=== PATIENT | male | born 2000 | race Caucasian/White ===

== ENCOUNTER 2023-03-20 10:16 | Emergency (ER) | payer OTHER, SELFPAY ==
[2023-03-20 10:20] VITALS: BP 155/96; PULSE 81; RESP 16; TEMP 36.7; O2SAT 99; BMI 18.2
--- NOTE | 2023-03-21 07:11 | ED.GENADUL1 ---
HPI - General Adult General Chief complaint: Recheck/Abnormal Lab/Rx Stated complaint: IV placement Time Seen by Provider: 03/20/23 10:27 Source: patient and family Mode of arrival: walk-in Limitations: no limitations History of Present Illness HPI narrative: Patient is having a dental procedure and requires medicine to be administered IV days before the procedure. Mother unable to get IV access at home because she did not have a complete IV kit. He presents requesting IV placement. He has no complaints Related Data Allergies Allergy/AdvReac Type Severity Reaction Status Date / Time ceftriaxone [From Rocephin] Allergy Unknown Verified 03/20/23 10:22 Penicillins Allergy Verified 03/20/23 10:22 Sulfa (Sulfonamide Allergy Verified 03/20/23 10:22 Antibiotics) PFSH PFS Social History Smoking status: Never smoker Exam Narrative Exam Narrative: Nurses notes and vital signs reviewed and patient is not hypoxic. afebrile General: Well-appearing and in no apparent distress. Skin: Warm, dry, no pallor noted. Eye: Pupils are equal, round and EOMI. No scleral icterus. Cardiovascular: Regular Rate and Rhythm without murmur, gallop or rub. Respiratory: No accessory muscle use or respiratory distress. Lungs clear. Musculoskeletal: normal ROM Neurological: A&O x4. No cranial nerve dysfunction observed. No truncal ataxia. Moves all extremities. Sensation intact. Psychiatric: Cooperative and interactive. Normal mood and affect. Constitutional Vital Signs, click to edit/add: Last Vital Signs Temp 98.0 F 03/20/23 10:20 Pulse 81 03/20/23 10:20 Resp 16 03/20/23 10:20 BP 155/96 H 03/20/23 10:20 Pulse Ox 99 03/20/23 10:20 O2 Del Method Room Air 03/20/23 10:20 Course Vital Signs Vital signs: Vital Signs Temperature 98.0 F 03/20/23 10:20 Pulse Rate 81 03/20/23 10:20 Respiratory Rate 16 03/20/23 10:20 Blood Pressure 155/96 H 03/20/23 10:20 Pulse Oximetry 99 03/20/23 10:20 Oxygen Delivery Method Room Air 03/20/23 10:20 Temperature 98.0 F 03/20/23 10:20 Pulse Rate 81 03/20/23 10:20 Respiratory Rate 16 03/20/23 10:20 Blood Pressure 155/96 H 03/20/23 10:20 Pulse Oximetry 99 03/20/23 10:20 Oxygen Delivery Method Room Air 03/20/23 10:20 Medical Decision Making MDM Narrative Medical decision making narrative: ED nurse placed a peripheral IV. Patient tolerated well. Mother administered his med while in the ED. No adverse reaction and he was discharged home. Discharge Plan Discharge Chief Complaint: Recheck/Abnormal Lab/Rx Clinical Impression: Encounter for intravenous line placement Patient Disposition: Home, Self-Care Time of Disposition Decision: 10:27 Instructions: How to Care for Your Midline Catheter (ED) Stand Alone Forms: Portal Instructions Discharge Date/Time: 03/20/23 10:43
== END 2023-03-20 10:43 | disposition home or self-care (01) ==
PROVIDERS: Emergency Provider Emergency Medicine; PCP Family Medicine
DX: Z45.2 Encounter for adjustment and management of vascular access device (principal)
CPT/HCPCS: 99283

== ENCOUNTER 2023-05-01 17:47 | Emergency (ER) | payer OTHER, SELFPAY ==
[2023-05-01 17:59] VITALS: BP 140/67; PULSE 80; RESP 18; TEMP 36.6; O2SAT 99; BMI 18.3
--- NOTE | 2023-05-01 18:04 | ED.GENADUL1 ---
HPI - General Adult General Chief complaint: Recheck/Abnormal Lab/Rx Stated complaint: START IV Time Seen by Provider: 05/01/23 18:01 Source: patient Mode of arrival: walk-in Limitations: no limitations History of Present Illness HPI narrative: Patient is a 22-year-old male with history of von Willebrand's disease who presents to the ER for IV placement. Patient receives IV medication for his von Willebrand's when he develops areas of bleeding. He states he started bleeding from the gums without trauma this afternoon. He has no other focal medical complaints or pain. His mother attempted IV placement x 2 without success so he presents to the ER for IV placement so that he can be given his home medication. Related Data Allergies Allergy/AdvReac Type Severity Reaction Status Date / Time ceftriaxone [From Rocephin] Allergy Unknown Verified 03/20/23 10:22 Penicillins Allergy Verified 03/20/23 10:22 Sulfa (Sulfonamide Allergy Verified 03/20/23 10:22 Antibiotics) Review of Systems ROS Constitutional Denies: fever or chills Ears, nose, mouth, and throat Denies: throat pain or nasal congestion Respiratory Denies: shortness of breath or cough Gastrointestinal Denies: nausea or vomiting Musculoskeletal Denies: back pain Integumentary/Breast Denies: rash Neurological Denies: headache Hematologic/Lymphatic Reports: easy bruising and easy bleeding PFSH PFSH Social History Smoking status: Never smoker Exam Narrative Exam Narrative: Gen.: Awake, alert, in no distress Head: Normocephalic, atraumatic ENT: Moist mucous membranes, minimal blood noted around the gumline of the left mandible Respiratory: No respiratory distress Extremities: Moves extremities equally Psych: Normal mood and affect Neuro: No focal neuro deficit Skin: Warm, dry, intact Constitutional Vital Signs, click to edit/add: Last Vital Signs Temp 97.9 F 05/01/23 17:59 Pulse 80 05/01/23 17:59 Resp 18 05/01/23 17:59 BP 140/67 05/01/23 17:59 Pulse Ox 99 05/01/23 17:59 O2 Del Method Room Air 05/01/23 17:59 Course Vital Signs Vital signs: Vital Signs Temperature 97.9 F 05/01/23 17:59 Pulse Rate 80 05/01/23 17:59 Respiratory Rate 18 05/01/23 17:59 Blood Pressure 140/67 05/01/23 17:59 Pulse Oximetry 99 05/01/23 17:59 Oxygen Delivery Method Room Air 05/01/23 17:59 Temperature 97.9 F 05/01/23 17:59 Pulse Rate 80 05/01/23 17:59 Respiratory Rate 18 05/01/23 17:59 Blood Pressure 140/67 05/01/23 17:59 Pulse Oximetry 99 05/01/23 17:59 Oxygen Delivery Method Room Air 05/01/23 17:59 Medical Decision Making MDM Narrative Medical decision making narrative: IV placed by nursing without difficulty and mother administered home medication. Patient with no significant active bleeding at this time, stable vital signs. Follow-up and return to the ER if symptoms change or worsen Medical Records Medical records reviewed: Yes I reviewed the patient's medical records Discharge Plan Discharge Chief Complaint: Recheck/Abnormal Lab/Rx Clinical Impression: Encounter for intravenous line placement Patient Disposition: Home, Self-Care Time of Disposition Decision: 18:04 Condition: Good Instructions: Bleeding Disorders (ED) Stand Alone Forms: Portal Instructions Referrals: Melissa Matute MD [Primary Care Provider] - 1 week Discharge Date/Time: 05/01/23 18:16
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
== END 2023-05-01 18:16 | disposition home or self-care (01) ==
PROVIDERS: Emergency Provider Emergency Medicine; PCP Family Medicine
DX: Z45.2 Encounter for adjustment and management of vascular access device (principal); D68.00 Von Willebrand disease, unspecified
CPT/HCPCS: 99283

== ENCOUNTER 2023-12-18 21:38 | Emergency (ER) | payer OTHER, SELFPAY ==
[2023-12-18 21:44] VITALS: BP 147/79; PULSE 73; TEMP 36.3; O2SAT 100
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
--- NOTE | 2023-12-18 21:52 | ED_ITS ---
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 He had a dental cleaning done yesterday and has been having some mild bleeding from his gums. He denies any pain. He has not had a fever. He has a small amount of oozing from his teeth and gum area without any excessive bleeding noted. He denies that he is nauseated from swallowing any blood. The mother has tried to place an IV in him approximately 8 times to avoid having come to the emergency department for an IV but she was unsuccessful. She request an IV to be placed so that he can receive his factor VIII. She has the factor VIII with her. No additional injuries or complaints. Related Data Allergies Allergy/AdvReac Type Severity Reaction Status Date / Time ceftriaxone [From Rocephin] Allergy Unknown Hives Verified 12/18/23 21:47 Penicillins Allergy Hives Verified 12/18/23 21:47 Sulfa (Sulfonamide Allergy Hives Verified 12/18/23 21:47 Antibiotics) Opioid HPI Opioid Management Most Recent Opioid Data: No Data to Display PFSH PFS Social History Smoking status: Never smoker Exam Constitutional Vital Signs, click to edit/add: Last Vital Signs Temp 97.4 F L 12/18/23 21:44 Pulse 73 12/18/23 21:44 Resp 18 12/18/23 21:44 BP 147/79 H 12/18/23 21:44 Pulse Ox 100 12/18/23 21:44 O2 Del Method Room Air 12/18/23 21:44 Course Vital Signs Vital signs: Vital Signs Temperature 97.4 F L 12/18/23 21:44 Pulse Rate 73 12/18/23 21:44 Respiratory Rate 18 12/18/23 21:44 Blood Pressure 147/79 H 12/18/23 21:44 Pulse Oximetry 100 12/18/23 21:44 Oxygen Delivery Method Room Air 12/18/23 21:44 Temperature 97.4 F L 12/18/23 21:44 Pulse Rate 73 12/18/23 21:44 Respiratory Rate 18 12/18/23 21:44 Blood Pressure 147/79 H 12/18/23 21:44 Pulse Oximetry 100 12/18/23 21:44 Oxygen Delivery Method Room Air 12/18/23 21:44 Medical Decision Making MDM Narrative Medical decision making narrative: A 20-gauge Angiocath was placed by the nursing staff for administration of factor VIII by the patient's mother. He has some venous oozing from his gums after dental work yesterday. He is otherwise stable. The medication was administered in the emergency department and he will be discharged home with the IV in place to use if he needs an additional treatment of factor VIII. The mother is well versed in IV insertion and removal. He is otherwise stable for discharge. Discharge Plan Discharge Stand Alone Forms: Portal Instructions Chief Complaint: Dental/Oral Clinical Impression: Encounter for intravenous line placement, Von Willebrand disease Patient Disposition: Home, Self-Care Time of Disposition Decision: 21:54 Condition: Good Print Language: [place] Additional Instructions: Gently remove IV when bleeding has ceases and apply pressure as needed until bleeding stops. Referrals: Melissa Matute MD [Primary Care Provider] - 1 week
== END 2023-12-18 22:14 | disposition home or self-care (01) ==
PROVIDERS: Emergency Provider Emergency Medicine; PCP Family Medicine
DX: D68.00 Von Willebrand disease, unspecified (principal)
CPT/HCPCS: 99281

== ENCOUNTER 2024-05-14 12:46 | Emergency (ER) | payer OTHER, SELFPAY ==
[2024-05-14 12:53] VITALS: BP 125/73; PULSE 79; TEMP 36.7; O2SAT 100; BMI 19.8
--- NOTE | 2024-05-14 13:19 | ED.GENADUL1 ---
HPI HPI - General Adult General Chief complaint: Recheck/Abnormal Lab/Rx Stated complaint: general weakness Time Seen by Provider: 05/14/24 12:59 Source: patient Mode of arrival: walk-in Limitations: no limitations History of Present Illness HPI narrative: Patient is a 23-year-old male well-known to this emergency department with a history of von Willebrand's disease. He has a history of requiring IV medication to stop the bleeding in the past when he has had injuries or areas of bleeding. Typically his mother is able to start the IV for him but if she is not able to get the IV, they come to the emergency department for IV placement so mother can administer medications which she brings from home. Patient states for the last several days he has had bleeding from tooth #32. He denies any injury or pain to the area. He states he noticed that it was bleeding several days ago and it has been steady, no other upper respiratory symptoms or issues. Related Data Allergies Allergy/AdvReac Type Severity Reaction Status Date / Time ceftriaxone (From Rocephin) Allergy Unknown Hives Verified 05/14/24 12:52 Penicillins Allergy Hives Verified 05/14/24 12:52 Sulfa (Sulfonamide Allergy Hives Verified 05/14/24 12:52 Antibiotics) Opioid HPI Opioid Management Most Recent Opioid Data: No Data to Display Review of Systems ROS Constitutional Denies: fever or chills Ears, nose, mouth, and throat Denies: throat pain or mouth pain Cardiovascular Denies: chest pain Respiratory Denies: shortness of breath Gastrointestinal Denies: nausea or vomiting Integumentary/Breast Denies: rash Neurological Denies: numbness in extremities or weakness in extremities Hematologic/Lymphatic Reports: easy bruising and easy bleeding PFSH PFSH Social History Smoking status: Never smoker Little interest or pleasure in doing things: not at all Feeling down, depressed, or hopeless: not at all Exam Narrative Exam Narrative: Gen.: Awake, alert, in no distress Head: Normocephalic, atraumatic ENT: Moist mucous membranes; tooth #32 with minimal dried blood around the base of the tooth at the gumline. No dental abscess or injury noted. Clear speech. No redness or swelling under the tongue Respiratory: No respiratory distress Extremities: Moves extremities equally, no injuries noted Psych: Normal mood and affect Neuro: No focal neuro deficit Skin: Warm, dry, intact Constitutional Vital Signs, click to edit/add: Last Vital Signs Temp 98.1 F 05/14/24 12:53 Pulse 79 05/14/24 12:53 Resp 18 05/14/24 12:53 BP 125/73 05/14/24 12:53 Pulse Ox 100 05/14/24 12:53 O2 Del Method Room Air 05/14/24 12:53 Course Vital Signs Vital signs: Vital Signs Temperature 98.1 F 05/14/24 12:53 Pulse Rate 79 05/14/24 12:53 Respiratory Rate 18 05/14/24 12:53 Blood Pressure 125/73 05/14/24 12:53 Pulse Oximetry 100 05/14/24 12:53 Oxygen Delivery Method Room Air 05/14/24 12:53 Temperature 98.1 F 05/14/24 12:53 Pulse Rate 79 05/14/24 12:53 Respiratory Rate 18 05/14/24 12:53 Blood Pressure 125/73 05/14/24 12:53 Pulse Oximetry 100 05/14/24 12:53 Oxygen Delivery Method Room Air 05/14/24 12:53 Medical Decision Making MDM Narrative Medical decision making narrative: IV placed easily by nursing staff, mother administered home medications as she has been previously instructed to do by their specialist. No issues, no other focal medical complaints. Follow-up with PCP and return to the ER if symptoms change or worsen SUPERVISED APC VISIT, PHYSICIAN ATTESTATION: Based on the medical record the care appears appropriate. ? Medical Records Medical records reviewed: Yes I reviewed the patient's medical records Discharge Plan Discharge Chief Complaint: Recheck/Abnormal Lab/Rx Clinical Impression: Encounter for intravenous line placement Patient Disposition: Home, Self-Care Time of Disposition Decision: 13:20 Condition: Good Print Language: [place] Referrals: Melissa Matute MD [Primary Care Provider] - 1 week
== END 2024-05-14 13:26 | disposition home or self-care (01) ==
PROVIDERS: Emergency Provider Student in an Organized Health Care Education/Training Program; PCP Family Medicine
DX: Z45.2 Encounter for adjustment and management of vascular access device (principal); D68.00 Von Willebrand disease, unspecified; K08.89 Other specified disorders of teeth and supporting structures
CPT/HCPCS: 99283

== ENCOUNTER 2024-06-20 22:24 | Emergency (ER) | payer OTHER, SELFPAY ==
[2024-06-20 22:30] VITALS: BP 136/74; PULSE 118; TEMP 39.2; O2SAT 98; BMI 20.4
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
[2024-06-20 22:56] LABS: Influenza Virus A Antigen Negative; Influenza Virus B Antigen Negative; Internal Control Within Normal Limits; SARS-CoV-2 Ag NEGATIVE (NEGATIVE)
[2024-06-20] MEDS: ACETAMINOPHEN 325 MG TABLET 650 MG PO (23:14)
[2024-06-20] MEDS: AZITHROMYCIN 250 MG TABLET 500 MG PO (23:14)
--- NOTE | 2024-06-20 23:17 | ED_ITS ---
HPI HPI - General Adult General Chief complaint: Fever Stated complaint: FEVER, COUGH Time Seen by Provider: 06/20/24 22:36 Source: patient Mode of arrival: walk-in Limitations: no limitations History of Present Illness HPI narrative: 23-year-old male to the emergency department chief complaint of several days of cough and fever. He denies any other symptoms. He denies any shortness of breath. Cough is not productive. normal intake and activity level. He does have a history of von Willebrand's. Related Data Previous Rx's ?Medication ?Instructions ?Recorded azithromycin 250 mg tablet 250 mg PO DAILY 4 days #4 tabs 06/20/24 benzonatate 100 mg capsule 100 mg PO Q6H PRN cough #20 caps 06/20/24 Allergies Allergy/AdvReac Type Severity Reaction Status Date / Time ceftriaxone (From Rocephin) Allergy Unknown Hives Verified 05/14/24 12:52 Penicillins Allergy Hives Verified 05/14/24 12:52 Sulfa (Sulfonamide Allergy Hives Verified 05/14/24 12:52 Antibiotics) Opioid HPI Opioid Management Most Recent Opioid Data: No Data to Display Review of Systems ROS Status of ROS 10 or more systems reviewed and unremark able except as noted in history and below PFSH PFSH Social History Smoking status: Never smoker Little interest or pleasure in doing things: not at all Feeling down, depressed, or hopeless: not at all Exam Narrative Exam Narrative: VITALS: I have reviewed the triage vital signs. GENERAL: Well developed, well appearing adult in no acute distress. NEURO: Alert and oriented. Moves all extremities. Face is symmetric and expressive. EYES: PERRL. No scleral icterus or conjunctival injection. No discharge. HENT: Normocephalic, atraumatic. Hearing is grossly intact. Nares grossly patent and without discharge. Mucous membranes moist. NECK: No JVD. Patient moves neck without restriction. CARDIO: Rhythm regular. Normal rate. No murmur, rub, or gallop. Pulses equal bilaterally in the upper and lower extremity. No lower extremity edema. PULM: Lungs clear to auscultation in all alvarado. No wheezes, rales, or rhonchi. No conversational dyspnea. No splinting, stridor, or accessory muscle use. GI/: Abdomen is soft and non-tender. Normoactive bowel sounds. EXTREMITIES: Symmetric muscle bulk. No joint swelling. No clubbing, cyanosis, or deformity. SKIN: Warm and dry. Normal turgor. No rash or lesions appreciated. PSYCH: Mood, affect, and interaction is appropriate to the setting. Constitutional Vital Signs, click to edit/add: Last Vital Signs Temp 102.6 F H 06/20/24 22:30 Pulse 118 H 06/20/24 22:30 Resp 18 06/20/24 22:30 BP 136/74 06/20/24 22:30 Pulse Ox 98 06/20/24 22:30 O2 Del Method Room Air 06/20/24 22:30 Course Vital Signs Vital signs: Vital Signs Temperature 102.6 F H 06/20/24 22:30 Pulse Rate 118 H 06/20/24 22:30 Respiratory Rate 18 06/20/24 22:30 Blood Pressure 136/74 06/20/24 22:30 Pulse Oximetry 98 06/20/24 22:30 Oxygen Delivery Method Room Air 06/20/24 22:30 Temperature 102.6 F H 06/20/24 22:30 Pulse Rate 118 H 06/20/24 22:30 Respiratory Rate 18 06/20/24 22:30 Blood Pressure 136/74 06/20/24 22:30 Pulse Oximetry 98 06/20/24 22:30 Oxygen Delivery Method Room Air 06/20/24 22:30 Medical Decision Making MDM Narrative Medical decision making narrative: Well-appearing 23-year-old male to the emergency department with chief complaint of fever and cough. Febrile, otherwise stable vitals. He is in no respiratory distress. He is well-appearing. COVID and influenza testing was negative. There is a large amount of atypical pneumonia in the community at this time. Will treat with azithromycin. Father asks for a cough medication. Tessalon Perles are prescribed. Return precautions were discussed. All questions were answered. The patient was discharged home Medical Records Medical records reviewed: Yes I reviewed the patient's medical records Lab Data Lab results reviewed: Yes I reviewed the patient's lab results Labs: Lab Results 06/20/24 Range/Units 22:35 Influenza Type A Ag Negative Influenza Type B Ag Negative SARS-CoV-2 Ag (CV2AG) Negative (NEGATIVE) Discharge Plan Discharge Chief Complaint: Fever Clinical Impression: Atypical pneumonia Patient Disposition: Home, Self-Care Time of Disposition Decision: 23:06 Condition: Good Mode of Transportation: Private Vehicle Prescriptions / Home Meds: New azithromycin 250 mg tablet 250 mg PO DAILY 4 Days Qty: 4 0RF Rx Instructions: start on day 2 of therapy benzonatate 100 mg capsule 100 mg PO Q6H PRN (Reason: cough) Qty: 20 0RF Print Language: Luxembourgish Instructions: Community Acquired Pneumonia (ED) Additional Instructions: Call the office of your primary care doctor to arrange for follow-up within the above-stated timeframe. Your ED visit was focused on your acute issue and does not replace primary care. You should review your labs, imaging, and diagnoses from this ED visit with your primary care physician. There may be non-emergent/ incidental findings that need further evaluation. You should review your vital signs including blood pressure with your PCP. If you were prescribed medications you should discuss possible side-effects and drug interactions with your pharmacist. Call 911 or go to the nearest Emergency Department if you develop any new or worsening symptoms. Seek immediate medical attention if you develop: worsening shortness of breath, difficulty breathing, chest pain, nausea, vomiting, weakness, numbness, tingling, excessive sweating, loss of motion in your arms or legs, or any new or worsening symptoms. Referrals: Melissa Matute MD [Primary Care Provider] - 1 week
[2024-06-20] MEDS: BENZONATATE 100 MG CAPSULE PO (23:43)
== END 2024-06-20 23:44 | disposition home or self-care (01) ==
PROVIDERS: Emergency Provider Student in an Organized Health Care Education/Training Program; PCP Family Medicine
DX: J18.9 Pneumonia, unspecified organism (principal); R50.9 Fever, unspecified; D68.00 Von Willebrand disease, unspecified
CPT/HCPCS: 87804; 87811; 99284